=== PATIENT | female | born 1975 | race African-American/Black ===

== ENCOUNTER 2020-05-28 15:51 | Inpatient (IN) | payer OTHER, SELFPAY ==
[2020-05-28] VITALS (8 sets, daily range): BP systolic 111–135; BP diastolic 56–71; PULSE 90–100; RESP 13–30; TEMP 36.6–37.2; O2SAT 98–100; BMI 27.6
--- NOTE | ~2020-05-28 | MR_ITS ---
EXAMINATION: MR brain/brain stem wo con DATE: 05/30/2020 10:48 INDICATION: Intermittent confusion and unresponsiveness. TECHNIQUE: Magnetic resonance imaging (MRI) of the brain and brainstem was performed without intraven ous contrast. Sequences included sagittal and axial T1-weighted SE, axial diffusion-weighted FS SE, a xial T2*-weighted GRE, axial T2-weighted FLAIR, and axial T2-weighted FSE. Apparent diffusion coeffic ient (ADC) maps were created. COMPARISON: Brain CT angiogram dated 05/29/2020 FINDINGS: There are no areas of restricted diffusion to suggest acute infarction. No intracranial hemorrhage or abnormal intracranial mass lesion. Single small focus of subtly increased white matter T2 hyperinten sity in the left frontal lobe centrum semiovale which is within normal limits for age. There are no i ntraparenchymal signal abnormalities seen on the other pulse sequences. The ventricles are symmetric and normal in size. There are no abnormal extra-axial fluid collections. Flow voids are seen in the c erebral arteries on the T2-weighted sequences consistent with their expected patency. Mucous retentio n cyst in the right maxillary sinus Visualized orbits and soft tissues are unremarkable. There are no areas of abnormal enhancement on the post contrast images. IMPRESSION: 1. Normal brain. No acute intracranial process. Reviewed, dictated and finalized at location A.
--- NOTE | ~2020-05-28 | NM_ITS ---
EXAMINATION: NM hepatobiliary w pharm DATE: 05/31/2020 10:55 INDICATION: Generalized abdominal pain. COMPARISON: CT abdomen and pelvis 05/28/2020 TECHNIQUE: 4.9 mCi Tc-99m mebrofenin (Choletec) was administered intravenously. Scintigraphic images of the abdomen were obtained for one hour. Then, 1.4 mcg sincalide (Kinevac) IV was administered, an d imaging was continued for 30 minutes. FINDINGS: There is normal clearance of radiotracer from the blood pool. There is homogeneous tracer u ptake by the liver. Activity progresses to the bowel and gallbladder. Gallbladder ejection fraction (GBEF) was 43%. Note that most patients with gallbladder dysfunction have GBEF < 35%, which overlaps with the broad normal range of 10-90%. IMPRESSION: 1. Normal hepatobiliary scintigraphy. Reviewed, dictated and finalized at location B.
--- NOTE | ~2020-05-28 | CT_ITS ---
EXAMINATION: CTA BRAIN/CAROTID DATE: 05/29/2020 11:43 INDICATION: Syncope TECHNIQUE: Computed tomographic angiography (CTA) of the head and neck was performed with 100 mL Omni paque-350 intravenous contrast. Multiplanar reconstructions and maximum intensity projection 3D-recon structions of the carotid arteries and of the intracranial arteries were created by the technologist on a separate workstation. Precontrast CT of the head was also obtained. Automated exposure control and iterative reconstruction technique were employed.The dose-length product was 1699.28 mGy-cm. COMPARISON: None. FINDINGS: Carotid arteries: There is 0% stenosis of the left and right carotid bulbs relative to normal distal artery lumen diame ter (NASCET criteria). The visualized upper lungs are clear. Cervical soft tissues and superior media stinum are unremarkable. Likely positional straightening of the normal cervical lordosis. Mild upper thoracic spondylosis. Head: No acute intracranial hemorrhage, acute infarction or abnormal extra axial fluid collection. Ventricl es are normal and symmetric. No mass/mass effect. No abnormally enhancing brain lesions. The orbits, paranasal sinuses and mastoid air cells are normal. Intracranial arteries There is no hemodynamically significant stenosis in the vertebral, basilar and internal carotid arter ies. Vertebral arteries are codominant. There are no aneurysms identified. Both A1 and P1 segments a re patent. Cerebral arterial arborization appears symmetric. IMPRESSION: 1. 0% stenosis of the left and right carotid bulbs relative to normal distal artery lumen diameter (N ASCET criteria). 2. Normal cerebral angiogram. 3. Mild brain. No acute intracranial process or abnormally enhancing brain lesions. Reviewed, dictated and finalized at location A. IMPRESSION: 1. 0% stenosis of the left and right carotid bulbs relative to normal distal ar david lumen diameter (NASCET criteria). 2. Normal cerebral angiogram. 3. Mild brain. No acute intracranial process or abnormally enhancing brain lesi ons.
--- NOTE | ~2020-05-28 | CT_ITS ---
EXAMINATION: CTA chest PE abdomen pel DATE: 05/28/2020 17:42 INDICATION: Unresponsiveness. Abdominal pain. TECHNIQUE: Computed tomography (CT) pulmonary angiogram of the chest was performed with 100 mL Omnipa que-350 intravenous contrast. Additional 3D reconstructions utilizing coronal maximum intensity proje ction (MIP) were performed. CT of the abdomen and pelvis was performed with intravenous contrast util izing the same contrast bolus following a short delay. Automated exposure control and iterative recon struction technique were employed. The dose-length product was 587.25 mGy-cm. COMPARISON: None FINDINGS: Chest: Good contrast opacification of the pulmonary arteries. There is mild streak artifact from dense contr ast in the superior vena cava and right atrium. Minimal scattered respiratory motion artifact which d oes not significantly limit evaluation. No pulmonary embolism. No pneumonia, pulmonary edema, pleural effusion or pneumothorax. Heart size is normal. Coronary artery disease with likely stenting along t he left anterior descending coronary artery. No pericardial effusion. Thoracic aorta is normal in natalie iber with no dissection. No pathologically enlarged thoracic lymphadenopathy. Bones are unremarkable. Abdomen/pelvis: Couple small hepatic calcifications consistent with old granulomatous disease. Gallbladder, spleen, p ancreas, bilateral adrenal glands and kidneys are normal. Moderate amount of stool scattered througho ut the colon. No abnormal bowel wall thickening or obstruction. Appendix is normal. Fibroid uterus wi th fibroids measuring up to 5 cm which distorts the endometrial canal. Multiple phleboliths in the pe lvis. Bladder and bilateral adnexa are normal. No free intraperitoneal gas or fluid. No pathologicall y enlarged abdominal or pelvic lymphadenopathy. Bones are unremarkable. IMPRESSION: 1. No pulmonary embolism or other acute cardiopulmonary disease. 2. Fibroid uterus. Reviewed, dictated and finalized at location A.
[2020-05-28 16:01] LABS: Glucose Point of Care 109 (65-105)
--- NOTE | 2020-05-28 16:19 | ED.GENADULT ---
HPI - General Adult General Chief complaint: Altered Mental Status Stated complaint: unresponsive Time Seen by Provider: 05/28/20 16:05 Source: family Limitations: clinical condition History of Present Illness HPI narrative: Patient is 45 years old -[place] female brought to the emergency room by her son unresponsive. He is telling me that his mom was sitting talking to him and suddenly fainted and became unresponsive. Narcan was given immediately without any response, patient was responding to painful stimulation, within 8 minutes patient was able to open up her eyes and answering questions. Patient is awake, alert and oriented to her name, age and the year, does not know the president. She reports a lot of abdominal and chest pain in the last 3 days, cramps, nausea, intermittent vomiting. And a lot of stress lately. Patient denies any fever, chills, headache, coughing, shortness of breath. Patient also denies exposure to anybody with known COVID-19. Patient lives alone, denies smoking, drinking or using drugs. Related Data Home Medications Medication Instructions Recorded Confirmed albuterol sulfate INHALATION 05/28/20 aspirin 05/28/20 atenolol-chlorthalidone tablet 05/28/20 budesonide-formoterol [Symbicort] INHALATION 05/28/20 clopidogrel 05/28/20 digoxin 05/28/20 ferrous sulfate 05/28/20 lisinopril 05/28/20 metoprolol tartrate 05/28/20 montelukast mg 05/28/20 omeprazole 05/28/20 rosuvastatin mg 05/28/20 Allergies Allergy/AdvReac Type Severity Reaction Status Date / Time No Known Allergies Allergy Verified 05/28/20 16:08 Review of Systems Review of Systems: Narrative: CONSTITUTIONAL: Denies fever, chills, or sweats. EYES: Denies visual changes, redness, or discharge. ENT: Denies rhinorrhea, congestion, sore throat, or otalgia. CARDIOVASCULAR: Denies chest pain, palpitations, or edema. RESPIRATORY: Denies cough or dyspnea. GASTROINTESTINAL: Denies abdominal pain, nausea, vomiting, or diarrhea. GENITOURINARY: Denies dysuria or hematuria. SKIN: Denies rash or itching. MUSCULOSKELETAL: Denies back pain, joint pain, or myalgia. NEUROLOGIC: Denies headache, numbness, or weakness. PSYCHIATRIC: Anxiety and depression PMFSH Past Medical History Medical History (Updated 05/28/20 @ 19:18 by Polly Mcgowan MD) Coronary artery disease Hyperlipidemia Hypertension Surgical History Surgical History (Updated 05/28/20 @ 16:24 by Polly Mcgowan MD) Stented coronary artery Social History Social History (Updated 05/28/20 @ 16:25 by Polly Mcgowan MD) Smoking status: Unknown if ever smoked Alcohol intake: unknown Substance use: unknown Gender identity (if verbalized by the patient): Female Exam Narrative: Exam Narrative: General appearance: Well-developed, well-nourished, unresponsive, responsive to painful stimulation, lasted for 8 minutes and then became awake alert and oriented x3. Skin: Normal color Head: Normocephalic, nontraumatic Eyes: Clear conjunctiva ENT: Oropharynx normal, ears normal, nose normal Neck: Supple, nontender Chest and respiratory: Airway patent, no respiratory distress, no accessory muscle use Heart: Regular rate/rhythm Abdomen: Soft, diffuse tenderness mainly right lower quadrant, no organomegaly, quiet bowel sounds Vascular: Normal peripheral pulses, normal capillary refill. Musculoskeletal: Normal range of motion, nontender back Neurologic: Alert and oriented ?3, FACILITY DESIGNER is normal as tested, no gross motor deficit Course Course Emergency Course: Improving Vital Signs Vital signs: Vital Signs Temperature 36.7 C 05/28/20 16:00 Pulse Rate 99 05/28/20 16:00 Respira
--- NOTE | 2020-05-28 16:27 | ECG_ITS ---
Measurements Intervals [place] Rate: 101 P: 35 [place]: 179 QRS: 45 QRSD: 80 T: 40 QT: 337 QTc: 438 Interpretive Statements SINUS TACHYCARDIA BASELINE WANDER- I, II, AVR, AVL, AVF, V3 BORDERLINE ECG Electronically Signed On 05-28-2020 19:34:02 CDT by Dawit Toscano D.O.
[2020-05-28 16:35] LABS: Alveolar/Arterial O2 Gradient 16.7 mmHg; Base Excess ABG 1.8 mEq/l (+/-2.0); Fractional Inspired Oxygen 21 %; Oxygen Content ABG 11.9 %vol (16.0-22.0); Oxygen Saturation ABG 97.7 % (95.0-100.0); Oxyhemoglobin 96.3 % THb (90.0-100.0); PCO2 ABG 33.7 mmHg (35.0-45.0); PO2 ABG 92.7 mmHg (80.0-100.0); PO2 FiO2 Ratio Arterial Blood 4.41 %; Total Hemoglobin 8.7 g/dL (12.0-18.0); pH ABG 7.489 (7.350-7.450)
[2020-05-28 16:36] LABS: Device ROOM AIR; Site Drawn LEFT BRACHIAL
[2020-05-28 16:38] LABS: Basophils Absolute Auto 0.1 K/mm3 (0.0-0.1); Basophils Percent Auto 0.5 % (0.2-1.2); Hematocrit 28.5 % (37.0-47.0); Hemoglobin 8.2 g/dL (12.0-15.0); Immature Granulocyte Absolute 0.06 K/mm3 (0.00-0.031); Immature Granulocyte Percent A 0.5 % (0-0.5); Lymphocytes Absolute Auto 2.62 K/mm3 (0.9-3.2); Lymphocytes Percent Auto 19.9 % (18.3-44.2); Mean Corpuscular HGB Conc 28.8 g/dl (32-36); Mean Corpuscular Hemoglobin 19.2 pg (26-34); Mean Corpuscular Volume 66.9 fl (80-100); Mean Platelet Volume 10.7 fl (7.4-10.4); Monocytes Absolute Auto 1.4 K/mm3 (0.1-0.6); Monocytes Percent Auto 10.7 % (2.6-8.5); Neutrophils Percent Auto 68.4 % (45.5-73.1); Platelet Count Result 655 k/mm3 (150-375); Red Blood Count 4.26 M/mm3 (4.2-5.4); Red Cell Distribution Width 20.7 % (11.5-14.5); White Blood Count 13.2 K/mm3 (4.5-10.0)
[2020-05-28] MEDS: ONDANSETRON INJ 4 MG/2 ML VIAL IV PUSH ×2 (16:42→22:18)
[2020-05-28 16:50] LABS: Add Urine Microscopic? YES; Appearance Urine Cloudy (Clear); Bacteria Urine Trace /hpf; Bilirubin Urine 1+ (Negative); Color Urine Amber (Yellow); Glucose Urine UA Negative (Negative); Hyaline Casts Urine 20-29 /lpf; Ketones Urine Negative (Negative); Leukocyte Esterase Ur Negative LEU/UL (Negative); Mucus Urine Heavy /lpf; Nitrate Urine Negative (Negative); Protein Urine 3+ mg/dL (Negative); Specific Grav Ur 1.027 (1.001-1.035); Squamous Epithelial Cell Urine Rare /hpf (Few); WBC Urine 21-30 /hpf
[2020-05-28 16:54] LABS: Alanine Aminotransferase 18 U/L (4-35); Albumin Level 4.8 g/dL (3.5-5.1); Alkaline Phosphatase 146 U/L (38-126); Anion Gap 16 mmol/L (8-16); Aspartate Amino Transferase 28 U/L (14-36); Bilirubin,Total 0.5 mg/dL (0.2-1.3); Blood Urea Nitrogen 19 mg/dL (7-17); Calcium 9.2 mg/dL (8.4-10.2); Carbon Dioxide 25 mmol/L (22-30); Chloride 93 mmol/L (98-107); Estimated Glomerular Filt Rate 39; Glucose 111 mg/dL (65-105); Lipase 58 U/L (23-300); Magnesium 2.2 mg/dL (1.6-2.3); Potassium 3.6 mmol/L (3.4-5.0); Sodium 134 mmol/L (137-145)
[2020-05-28 16:55] LABS: Blood Urine Negative (Negative)
[2020-05-28 16:56] LABS: Ethanol < 10 mg/dL (<10)
[2020-05-28 16:57] LABS: Amphetamine Screen Urine Negative (Negative); Barbiturate Screen Urine Negative (Negative); Benzodiazepines Screen Urine Negative (Negative); Cannabinoid Screen Urine Negative (Negative); Cocaine Screen Urine Negative (Negative); Methadone Screen Urine Negative (Negative); Opiate Screen Urine Negative (Negative); Phencyclidine Screen Urine Negative (Negative)
--- NOTE | 2020-05-28 16:58 | PC.NURSE ---
Patient requesting pain medication. EDP aware, reports will need CT results. Patient informed.
[2020-05-28 17:07] LABS: Platelet Estimate Increased (Adequate)
[2020-05-28 17:08] LABS: Anisocytosis 3+ (NORMAL); Hypochromasia 1+ (NORMAL)
[2020-05-28] MEDS: MORPHINE SULFATE 4 MG/ML INJ IV PUSH (17:59)
--- NOTE | 2020-05-28 20:51 | PC.NURSE ---
Rica Bahena: [phone]
--- NOTE | 2020-05-28 21:30 | ADMGEN ---
This patient, Concepción Lozano, was admitted to [facility] Surg Room 314-01. Patient/family oriented to hospital policies and general routines including ID bracelet, bed and alarms, visiting hours, pain management, procedures, bathroom and other care routines, personal items, smoking policy, room service/diet, and visiting hours. Valuables list has been completed. Information on how to activate the Rapid Response Team has been discussed. Patient/Family are encouraged to report perceived risks to care and to ask questions if they do not understand what they are told or what they should do.
--- NOTE | 2020-05-28 21:30 | PM.IMHP ---
H&P: HPI History of Present Illness Date/Time: 05/28/20 21:30 Chief complaint: Syncope. Narrative: Concepción Lozano is a very pleasant 45-year-old female with coronary artery disease status post stent to the LAD in July 2019, hypertension, hyperlipidemia, and iron deficiency anemia who presented to the emergency department earlier today via private vehicle for evaluation after a syncopal episode. She was at a family function not long prior to arrival, when she developed sudden onset of diffuse abdominal cramping like I was delivering a baby which radiated somewhat into the chest. The pain was so severe that it seemed to take her breath, and she may have been breathing rapidly as shortly thereafter she developed lightheadedness and darkening of her vision with subsequent syncopal episode. Her son was standing next to her and was able to prevent her from falling. He placed her in the car and drove her to the emergency department, where she was still unresponsive on arrival. She was given Narcan without response but within about 5 minutes she came to and was able to provide more history. Over the last several days she has not been feeling well, with nausea and vomiting, with the inability to keep anything down longer than a couple of minutes. Additionally, she is on her menstrual cycle and with further questioning she has had heavy periods for quite some time, sometimes going through a half a box of pads in 1 day. She bleeds heavily between periods as well. She has been on iron for some time and reports that her stool is always dark, with a normal bowel movement yesterday. Omeprazole as listed on her medication list, and it sounds like she was prescribed this when she was started on aspirin and clopidogrel after her DC in 07/2019. She denies significant GERD symptoms but does report increasing stress recently. She does not consume significant quantities of caffeine and denies alcohol use. No hematemesis or hematochezia. No history of peptic ulcers, gallbladder disease, or pancreatitis. She has not had exertional chest pain or pleuritic pain. No cough or resting shortness of breath. No history of venous thromboembolism. There was no mention of seizure activity. She has no history of syncope. Of note, she has been monitoring her blood pressures at home and over the past 3 days or so they have been lower than usual, as low as the 90 systolic. Review of Systems Review of Systems: Narrative: Twelve systems were reviewed with pertinent positives and negatives as per HPI. No fever, chills, or sweats. No recent cold or flu symptoms. No exposure to those positive for COVID-19. She has lost 13 lb unintentionally maybe over the last 6 months. She has never had a colonoscopy or endoscopy. She does have COPD and was a heavy smoker prior to her DC, but states that is well controlled on her maintenance inhalers. No dysuria or hematuria. She has not noticed a significant change in urine output. Except as documented, all other systems were reviewed and are negative. [facility] Past Medical History Medical History (Updated 05/28/20 @ 22:44 by Stephanie Knox PA-C) Chronic obstructive pulmonary disease Coronary artery disease Status post stent to the LAD in July 2019, on dual anti-platelet therapy as of 05/28/2020. She is a patient of Dr. Jason Dunaway. Hyperlipidemia Hypertension Iron deficiency anemia Myocardial infarction (~07/2019) Surgical History Surgical History (Updated 05/28/20 @ 22:07 by Stephanie Knox PA-C) History of 3 sections Stented coronary artery (~07/2019) Drug-eluting stent to the LAD. Family History Family History (Updated 05/28/20 @ 22:08 by Stephanie Knox PA-C) Mother Congestive heart failure Liver cancer Sibling Congenital heart disease Social History Social History (Updated 05/28/20 @ 22:09 by Stephanie Knox PA-C) Social History: Surrogate decision maker: Yahaira Lozano, sister. Code
[2020-05-28] MEDS: PANTOPRAZOLE SODIUM IV 40 MG VIAL IV PUSH (22:15)
[2020-05-28] MEDS: SODIUM CHLORIDE 0.9% IV 1,000 ML 75 ML IV CONT (22:15)
[2020-05-28 22:28] LABS: Hematocrit 27.3 % (37.0-47.0); Hemoglobin 7.9 g/dL (12.0-15.0); Immature Reticulocyte Fraction 28.5 % (3.0-15.9); Reticulocyte Hemoglobin Conten 26.4 pg (28.2-35.7); Reticulocyte Percent 2.52 % (0.7-4.3)
[2020-05-28 22:47] LABS: Lactate Dehydrogenase 586 U/L (313-618)
[2020-05-28 22:49] LABS: Iron 26 ug/dL (37-170)
[2020-05-28 22:54] LABS: Transferrin 373 mg/dL (206-381)
[2020-05-28 22:58] LABS: Percent Iron Saturation 5 % (20-50)
[2020-05-28 23:02] LABS: Glucose Point of Care 110 (65-105)
[2020-05-28 23:05] LABS: Troponin I 0.043 ng/mL (0.000-0.034)
[2020-05-28 23:26] LABS: Ferritin 8.99 ng/mL (6.24-137)
[2020-05-28 23:33] LABS: Digoxin 1.7 ng/mL (0.8-2.0)
[2020-05-28 23:54] LABS: Folic Acid 9.6 ng/mL (2.76->20)
[2020-05-29] VITALS (21 sets, daily range): BP systolic 92–150; BP diastolic 53–89; PULSE 60–983; RESP 12–18; TEMP 36.1–36.8; O2SAT 95–100
--- NOTE | 2020-05-29 | ECHO_ITS ---
Patient Info Name: Concepción Lozano Age: 45 years : 1975 Gender: Female Ht: 62 in Wt: 151 lbs BSA: 1.75 m2 HR: 83 bpm BP: 122 / 65 mmHg Technical Quality: Good Exam Date: 05/29/2020 7:16 AM Exam Location: [facility] Patient Status: Inpatient Admit Date: 05/28/2020 Staff Ordering Physician: Stephanie Knox PA-C Bond Manager: Rica Neri RDCS Attending Provider: Sofia Dyer DO Referring Physician: Abilio REVELES; Exam Type: CA echo dop color flow w con Summary 1. Normal LV size and wall thickness, normal LV systolic and diastolic function, EF 60-65%. Normal mitral valve, no significant mitral regurgitation. Aortic valve appears sclerotic, all 3 leaflets are not well visualized; mild stenosis with valve area 2.3 cm2, trivial AI. Trace TR, unable to assess RVSP due to inadequate TR jet velocity. Left Ventricle Left ventricular chamber dimension is normal. Left ventricular systolic function is normal, estimated at 60-65%. There is mildly increased left ventricular wall thickness. Left ventricular septal wall motion is normal. The left ventricular diastolic function is normal. Right Ventricle Right ventricular chamber dimension is normal. Right ventricular systolic function is normal. Left Atria Left atrial chamber dimension is normal. Right Atria Right atrial chamber dimension is normal. Aortic Valve The aortic valve is trileaflet. There is moderate aortic valve sclerosis. There is mild aortic valve stenosis with a peak velocity of 170.79 cm/s, mean gradient of 3 mmHg, and aortic valve area of 2.05 cm2. There is trace aortic valve regurgitation. Pulmonic Valve The pulmonic valve is normal. There is trace pulmonic regurgitation. Mitral Valve The mitral valve has normal leaflets. There is no mitral valve stenosis. There is no mitral valve regurgitation. Tricuspid Valve The tricuspid valve leaflets are normal. There is trace tricuspid valve regurgitation. Pericardium/Pleural The pericardium appears epicardial fat pad. Aorta The aortic root size at the sinus of Valsalva is normal. The prox ascending aorta size is normal. Left Ventricular Outflow Tract Name Value Normal LVOT 2D LVOT Diameter 1.93 cm LVOT Doppler LVOT Peak Gradient 6 mmHg LVOT Mean Gradient 2 mmHg LVOT VTI 18.83 cm LVOT VTI/AV VTI Ratio 0.70 LVOT Stroke Volume 54.90 ml LVOT CO 3.63 l/min LVOT CI 2.07 L/min/m2 Pulmonic Valve Name Value Normal PV Doppler PV Peak Gradient 3 mmHg Aortic Valve Name Value Normal ---------
[2020-05-29 01:57] LABS: Troponin I 0.034 ng/mL (0.000-0.034)
[2020-05-29 06:30] LABS: Hematocrit 27.3 % (37.0-47.0); Hemoglobin 7.7 g/dL (12.0-15.0); Mean Corpuscular HGB Conc 28.2 g/dl (32-36); Mean Corpuscular Hemoglobin 19.1 pg (26-34); Mean Corpuscular Volume 67.7 fl (80-100); Mean Platelet Volume 10.3 fl (7.4-10.4); Platelet Count Result 559 k/mm3 (150-375); Red Blood Count 4.03 M/mm3 (4.2-5.4); Red Cell Distribution Width 20.5 % (11.5-14.5); White Blood Count 9.9 K/mm3 (4.5-10.0)
[2020-05-29 06:53] LABS: Anion Gap 11 mmol/L (8-16); Blood Urea Nitrogen 16 mg/dL (7-17); Calcium 9.1 mg/dL (8.4-10.2); Carbon Dioxide 27 mmol/L (22-30); Chloride 96 mmol/L (98-107); Estimated CRCL calculation 36 ml/min; Estimated Glomerular Filt Rate 42; Glucose 102 mg/dL (65-105); Magnesium 2.5 mg/dL (1.6-2.3); Potassium 3.4 mmol/L (3.4-5.0); Sodium 134 mmol/L (137-145)
--- NOTE | 2020-05-29 07:53 | PCRCNOTE ---
med in mar is messed up pt given 2 puffs not 160 puffs of budesonide/form 160-4.5 MCG
[2020-05-29 10:36] LABS: Hematocrit 25.4 % (37.0-47.0); Hemoglobin 7.3 g/dL (12.0-15.0)
[2020-05-29] MEDS: ONDANSETRON INJ 4 MG/2 ML VIAL IV PUSH ×3 (12:09→21:16)
[2020-05-29] MEDS: PANTOPRAZOLE SODIUM IV 40 MG VIAL IV PUSH ×2 (12:11→20:57)
[2020-05-29] MEDS: IRON SUCROSE COMPLEX 100 MG in SODIUM CHLORIDE 0.9% IV 50 ML 220 MG IVPB (12:45)
[2020-05-29] MEDS: DIGOXIN 250 MCG TABLET PO (13:35)
[2020-05-29] MEDS: POTASSIUM CHLORIDE 20 MEQ TABLET PO (13:36)
[2020-05-29] MEDS: ROSUVASTATIN 10 MG TABLET 40 MG PO (13:36)
[2020-05-29] MEDS: MONTELUKAST SODIUM 10 MG TABLET PO (13:36)
[2020-05-29] MEDS: ASPIRIN 81 MG CHEWABLE TABLET PO (13:37)
[2020-05-29] MEDS: FERROUS SULFATE 324 MG TABLET PO (13:37)
[2020-05-29] MEDS: CYANOCOBALAMIN 1,000 MCG TABLET 1000 MCG PO (13:37)
--- NOTE | 2020-05-29 14:31 | ECG_ITS ---
Measurements Intervals [facility] [place] Rate: 91 P: 9 [place]: 309 QRS: 40 QRSD: 81 T: 3 QT: 331 QTc: 409 Interpretive Statements SINUS RHYTHM WITH MARKED FIRST DEGREE AV BLOCK BORDERLINE ST-T WAVE ABNORMALITY- ANT/INF LEADS BASELINE ARTIFACT- I, III, AVR, AVL, AVF, V5-V6 ABNORMAL ECG Electronically Signed On 05-29-2020 16:58:28 CDT by Dawit Toscano D.O.
[2020-05-29] MEDS: SODIUM CHLORIDE 0.9% IV 1,000 ML 75 ML IV CONT (15:20)
--- NOTE | 2020-05-29 15:58 | PC.NURSE ---
This patient, Concepción Lozano, was transferred to [[facility] ] on 05/29/20 at 1550. Personal belongings sent with patient. Belongings list checked. Report given to [Ondina ]. Appropriate documentation sent with patient.
--- NOTE | 2020-05-29 16:11 | PM.IMPN ---
Progress Note: A&P Assessment and Plan (1) Mobitz type 2 second degree heart block: Code(s): I44.1 - Atrioventricular block, second degree Status: Acute Assessment and Plan: -----concerning telemetry strips show evidence of possible 2nd degree type 2 heart block. This did not happen when she was symptomatic today but happened at 5:00 a.m.. I had a repeat EKG which does not show this. I have discussed this with the project safety manager and he is going to see her tomorrow. Recommends holding beta-cindy therapy as well as digoxin. I am unsure of this is causing her syncope as I believe it is multi factorial. See below (2) Syncope: Code(s): R55 - Syncope and collapse Status: Acute Assessment and Plan: -----unclear etiology at this time but I suspect she had a vasovagal event from her abdominal pain. This is complicated with her worsening anemia due to menorrhalgia and now possibly a heart block. CT of the abdomen pelvis did not show any etiology for the abdominal pain and the patient states it is getting better but still there. She has not had any bowel movements. I held her beta-cindy and digoxin and repeat an EKG which shows first-degree heart block at this time. I have contacted Dr. Dunaway who recommends another troponin and moving her to the IMU. CTA of the brain normal. Await echo (3) Kidney failure: Qualifiers: Renal failure chronicity: unspecified chronicity Qualified Code(s): N19 - Unspecified kidney failure Code(s): N19 - Unspecified kidney failure Status: Acute Assessment and Plan: -----patient does not know of any history of kidney disease but her creatinine has been elevated. She received contrast yesterday and today so we will continue with the IV fluids. We have requested records from her PCP (4) Dehydration: Code(s): E86.0 - Dehydration Status: Acute Assessment and Plan: -----Due to poor oral intake from nausea in addition to vomiting last couple of days. Continue IV fluids (5) Iron deficiency anemia: Code(s): D50.9 - Iron deficiency anemia, unspecified Status: Acute Assessment and Plan: -----Most likely due to menometrorrhagia however given GI symptoms will wait for Ifob. She was given 1 dose of IV iron today and her hemoglobin decreased with additional dizziness so she was given 1 unit of blood. (6) Coronary artery disease: Code(s): I25.10 - Atherosclerotic heart disease of [place] coronary artery without angina pectoris Status: Acute Assessment and Plan: -----Status post drug-eluting stent to the LAD in July 2019. Plavix is being held and previous provider discussed this with Dr. Dunaway. Beta-cindy and digoxin has been held (7) Hypertension: Code(s): I10 - Essential (primary) hypertension Status: Acute Assessment and Plan: -----last blood pressure 110/60. Monitor (8) Menometrorrhagia: Code(s): N92.1 - Excessive and frequent menstruation with irregular cycle Status: Acute Assessment and Plan: -----this is been going on for about 6 months to a year and she is noted to have fibroids on CT. I discussed the findings with her and she is going to follow-up with her OBGYN Dr. Marques who is in the [place] (9) Chronic obstructive pulmonary disease: Code(s): J44.9 - Chronic obstructive pulmonary disease, unspecified Status: Acute Assessment and Plan: -----No acute issues; continue maintenance inhalers. Time Spent With Patient Time with patient: 25 - 35 minutes Subjective Date/time seen: 05/29/20 16:11 Interval history: Pt is a 45-year-old female here for abdominal pain and syncope. Patient was seen today and states that she is still feeling nauseated and having abdominal pain. When she went to go to the CT scan she felt herself get dizzy again and the public works technician said t
[2020-05-29 16:23] LABS: Hemoglobin 8.7 g/dL (12.0-15.0)
[2020-05-29 16:48] LABS: Troponin I 0.013 ng/mL (0.000-0.034)
--- NOTE | 2020-05-29 18:14 | PC.NURSE ---
This patient, Concepción Lozano, was received from [[id number] ] on 05/29/20 at 1545. Personal belongings list checked and signed. Patient/family oriented to unit policies and routines
[2020-05-29] MEDS: ACETAMINOPHEN 325 MG TABLET 650 MG PO (21:58)
[2020-05-29 22:14] LABS: Hemoglobin 8.9 g/dL (12.0-15.0)
[2020-05-30] VITALS (20 sets, daily range): BP systolic 101–122; BP diastolic 57–89; PULSE 46–100; RESP 16–20; TEMP 36–36.8; O2SAT 98–100
[2020-05-30] MEDS: SODIUM CHLORIDE 0.9% IV 1,000 ML 75 ML IV CONT ×2 (04:41→20:09)
[2020-05-30 04:48] LABS: Hematocrit 30.6 % (37.0-47.0); Mean Corpuscular HGB Conc 29.4 g/dl (32-36); Mean Corpuscular Volume 71.3 fl (80-100); Mean Platelet Volume 10.2 fl (7.4-10.4); Platelet Count Result 529 k/mm3 (150-375); Red Blood Count 4.29 M/mm3 (4.2-5.4); Red Cell Distribution Width 22.3 % (11.5-14.5); White Blood Count 8.4 K/mm3 (4.5-10.0)
[2020-05-30 05:00] LABS: Alanine Aminotransferase 14 U/L (4-35); Albumin Level 4.1 g/dL (3.5-5.1); Alkaline Phosphatase 125 U/L (38-126); Anion Gap 9 mmol/L (8-16); Aspartate Amino Transferase 22 U/L (14-36); Bilirubin,Total 0.5 mg/dL (0.2-1.3); Blood Urea Nitrogen 14 mg/dL (7-17); Calcium 9.1 mg/dL (8.4-10.2); Carbon Dioxide 25 mmol/L (22-30); Chloride 100 mmol/L (98-107); Estimated CRCL calculation 34 ml/min; Estimated Glomerular Filt Rate 39; Glucose 101 mg/dL (65-105); Potassium 3.4 mmol/L (3.4-5.0); Sodium 134 mmol/L (137-145)
[2020-05-30] MEDS: ROSUVASTATIN 10 MG TABLET 40 MG PO (08:43)
[2020-05-30] MEDS: ASPIRIN 81 MG CHEWABLE TABLET PO (08:43)
[2020-05-30] MEDS: FERROUS SULFATE 324 MG TABLET PO (08:43)
[2020-05-30] MEDS: CYANOCOBALAMIN 1,000 MCG TABLET 1000 MCG PO (08:43)
[2020-05-30] MEDS: PANTOPRAZOLE SODIUM IV 40 MG VIAL IV PUSH ×2 (08:44→21:17)
[2020-05-30] MEDS: MONTELUKAST SODIUM 10 MG TABLET PO (08:44)
[2020-05-30] MEDS: ONDANSETRON INJ 4 MG/2 ML VIAL IV PUSH ×3 (08:46→17:23)
--- NOTE | 2020-05-30 10:32 | PM.IMPN ---
Progress Note: A&P Assessment and Plan (1) [place] type 2 second degree heart block: Code(s): I44.1 - Atrioventricular block, second degree Status: Acute Assessment and Plan: -----concerning telemetry strips show evidence of 2nd degree type 2 heart block. This did not happen when she was symptomatic earlier today but but has been persistent at times. I have asked the nurse to try an order an EKG if she goes into this block again. I spoke with Cardiology who recommends holding beta-cindy therapy as well as digoxin. I am unsure of this is causing her syncope as I believe it is multi factorial. See below (2) Syncope: Code(s): R55 - Syncope and collapse Status: Acute Assessment and Plan: -----unclear etiology at this time but I suspect she had a vasovagal event from her abdominal pain. This is complicated with her worsening anemia due to menorrhalgia and now possibly a heart block. CT of the abdomen pelvis did not show any etiology for the abdominal pain and the patient states it is getting better but still there and is 8/10. For this reason, I am going to order a HIDA scan tomorrow as she possibly may have a hypoactive gallbladder. She has been on Protonix which to has not seemed to help. I will order a GI cocktail. She has not had any bowel movements. Because of the persistent pain, I am going to ask GI to see her in consult. (3) Kidney failure: Qualifiers: Renal failure chronicity: unspecified chronicity Qualified Code(s): N19 - Unspecified kidney failure Code(s): N19 - Unspecified kidney failure Status: Acute Assessment and Plan: -----patient does not know of any history of kidney disease but her creatinine has been elevated. She received contrast on admission so we will continue with the IV fluids. We have requested records from her PCP (4) Dehydration: Code(s): E86.0 - Dehydration Status: Acute Assessment and Plan: -----Due to poor oral intake from nausea in addition to vomiting last couple of days. Continue IV fluids (5) Iron deficiency anemia: Code(s): D50.9 - Iron deficiency anemia, unspecified Status: Acute Assessment and Plan: -----Most likely due to menometrorrhagia however given GI symptoms will wait for Ifob. She was given 1 dose of IV iron on admission and her hemoglobin decreased with additional dizziness so she was given 1 unit of blood. Hemoglobin stable today (6) Coronary artery disease: Code(s): I25.10 - Atherosclerotic heart disease of [place] coronary artery without angina pectoris Status: Acute Assessment and Plan: -----Status post drug-eluting stent to the LAD in July 2019. Plavix is being held and previous provider discussed this with Dr. Dunaway. Beta-cindy and digoxin has been held (7) Hypertension: Code(s): I10 - Essential (primary) hypertension Status: Acute Assessment and Plan: -----last blood pressure 116/62. Monitor (8) Menometrorrhagia: Code(s): N92.1 - Excessive and frequent menstruation with irregular cycle Status: Acute Assessment and Plan: -----this is been going on for about 6 months to a year and she is noted to have fibroids on CT. I discussed the findings with her and she is going to follow-up with her OBGYN Dr. Marques who is in the [place] (9) Chronic obstructive pulmonary disease: Code(s): J44.9 - Chronic obstructive pulmonary disease, unspecified Status: Acute Assessment and Plan: -----No acute issues; continue maintenance inhalers. Subjective Date/time seen: 05/30/20 10:32 Interval history: Pt is a 45-year-old female here for abdominal pain and syncope. Patient was seen today and says her abdominal pain is a little better but still an 8/10. She was able to eat today and she is still nauseous and throwing up a bit. She states this pain
--- NOTE | 2020-05-30 10:37 | ECG_ITS ---
Measurements Intervals [place] Rate: 71 P: MD: 0 QRS: 33 QRSD: 87 T: 27 QT: 367 QTc: 401 Interpretive Statements SINUS RHYTHM WITH MARKED FIRST DEGREE AV BLOCK BORDERLINE ST-T WAVE ABNORMALITY- ANTERIOR LEADS ABNORMAL ECG Electronically Signed On 05-30-2020 13:40:41 CDT by Dawit Toscano D.O.
--- NOTE | 2020-05-30 11:49 | PM.CNCAR ---
Assessment and Plan Assessment and plan (1) Syncope: Code(s): R55 - Syncope and collapse Status: Acute Assessment and Plan: She has first degree AV block with intermittent wenckebach heart block. Longest pause of 3.5 seconds Her low degree block is likely provoked by vasovagal reaction due to her abdominal pain however she likely has sick conduction system (likely due to prior STMI last year) suggested by prior holter monitor findings in February with HR 37. She was scheduled for 1 week event monitor next month during her last visit to the office For now she has no acute indication for pacemaker but will continue to monitor her on tele to see if she has any higher degree AV block Hold Metoprolol and Digoxin Check 2D echocardiogram (2) Coronary artery disease: Code(s): I25.10 - Atherosclerotic heart disease of [place] coronary artery without angina pectoris Status: Acute Assessment and Plan: s/p LAD stent. Continue ASA and Plavix. Continue Statin (3) Cardiomyopathy: Code(s): I42.9 - Cardiomyopathy, unspecified Status: Acute Assessment and Plan: With EF 25% folowing her STMI however EF recovered on echo in January. Will repeat limited 2D echo now for work up of syncope and to reassess LV function History of Present Illness History of Present Illness Consult date/time: 05/30/20 11:49 45 years-old Female with h/o , STEMI s/p PTCA to mid LAD (07/2019), ischemic cardiomyopathy with recovered EF, Hypertension and Asthma who presented with syncope She has been having nausea/vomiting with poor oral intake for few days and yesterday she developed severe cramping in her abdomen followed by dizziness and complete loose of consciousness. She was brought by family to ER and did not wake up till after she got to the hospital HER EKG shows sinus rhythm with marked first degree AV block. She has also been intermittently having wenckebach heart block as well as 2:1 block. Longest pause of 3.5 seconds. She feels better now but occasionally dizzy still. Had echo with EF 20-25% in Jul 2019 but most recent echo in January 2020 showed recovered EF 50-55% She had holter in February that showed sinus rhythm but she had junctional escape episode while asleep with HR 37. She was scheduled for 1 week event monitor next month to assess for pauses and also for palpitations that she has been intermittently feeling. She was on Metoprolol 25 BID Reason For Visit: Syncope. Review of Systems Review of Systems: All systems reviewed & are unremarkable except as noted in HPI and below Constitutional: Constitutional: Denies fatigue and Denies headache(s) Eyes: Eyes: Denies blurry vision ENT: Reports Normal hearing present and Denies headache(s) Cardiovascular: Cardiovascular: Denies chest pain, Denies diaphoresis, Denies pedal edema, Denies leg edema, Denies lightheadedness, Denies palpitations and Denies dyspnea Respiratory: Respiratory: Denies cough and Denies dyspnea Gastrointestinal: Gastrointestinal: Denies abdominal pain Musculoskeletal: Musculoskeletal: Denies back pain Neurologic: Reports Normal hearing present and Denies headache(s) Psychiatric: Psychiatric: Denies anxiety Endocrine: Endocrine: Denies fatigue and Denies palpitations [facility] Past Medical History Medical History (Updated 05/30/20 @ 13:23 by Yoly Kc MD) Abdominal pain Chronic obstructive pulmonary disease Coronary artery disease Status post stent to the LAD in July 2019, on dual anti-platelet therapy as of 05/28/2020. She is a patient of Dr. Jason Dunaway. Hyperlipidemia Hypertension Iron deficiency anemia Myocardial infarction (~07/2019) Nausea and vomiting in adult Surgical History Surgical History (Updated 05/28/20 @ 22:07 by Stephanie Knox PA-C) History of 3 sections Stented coronary artery (~07/2019) Drug-eluting stent to the LAD. Family History Fami
--- NOTE | 2020-05-30 12:15 | WPDGICN ---
Assessment and Plan Assessment and plan (1) Nausea and vomiting in adult: Code(s): R11.2 - Nausea with vomiting, unspecified Status: Acute Assessment and Plan: overall better with no vomiting but still nauseous, also abdominal discomfort. Will proceed with egd (assess if ulcers, h pylori, etc) and colonoscopy (lower abdominal pain, also h/o JOEY but most likely related to [facility] cause) but still need to assess (2) Abdominal pain: Code(s): R10.9 - Unspecified abdominal pain Status: Acute Assessment and Plan: better with medical management, CT scan reviewed (3) Iron deficiency anemia: Code(s): D50.9 - Iron deficiency anemia, unspecified Status: Acute Assessment and Plan: she has fibroids and heavy periods, received blood transfusion will need follow up with [facility] (4) Syncope: Code(s): R55 - Syncope and collapse Status: Acute Assessment and Plan: ? vasovagal but she also has cardiac history, cardiology is evaluating. (5) Coronary artery disease: Code(s): I25.10 - Atherosclerotic heart disease of [place] coronary artery without angina pectoris Status: Acute GI Consult Note Consult date/time: 05/30/20 12:15 Reason for consult: n/v, abdominal pain, syncope HPI: Concepción Lozano is a 45 year old female wiht history of coronary artery disease status post stent to the LAD in July 2019, hypertension, hyperlipidemia, and iron deficiency anemia probably from menometrorrhagia (she has heavy periods up to 2 weeks, several times a day with clots). She was brought here with 3-4 days of diffuse abdominal pain in lower area that will radiate up to epigastrium/chest along with nausea and vomiting. Day of admission she had severe pain like I was delivering a baby , pain seemed to take her breath, then became lightheadedness and darkening of her vision with subsequent syncopal episode. Her son was standing next to her and was able to prevent her from falling. She was even given narcan without response but within about 5 minutes she woke up. Work up included CTA, no PE, only fibroids (she completed her cycle yesterday), also had JOEY with hb 7 (received one unit of prbc) and up to 9. Liver enzymes, lipase normal, also digoxin level wnl. She is evaluated by cardiology (had AVB), most recent ECHO EF 50-55%, last year was 20-25%. Pain is better now, still nauseous. Never had scopes. Denies blood in stools or change in bowel habits. Started on ppi. Review of Systems Constitutional: Constitutional: Denies headache(s) and Denies weakness Eyes: Eyes: Reports blurry vision ENT: Reports Normal hearing present, Denies headache(s) and Denies neck pain Cardiovascular: Cardiovascular: Reports lightheadedness and Denies dyspnea Respiratory: Respiratory: Denies dyspnea Gastrointestinal: Gastrointestinal: Reports abdominal pain, Reports nausea and Reports vomiting Genitourinary: Genitourinary: Reports dysmenorrhea Musculoskeletal: Musculoskeletal: Denies neck pain Integumentary/Breasts: Skin/Breast: Denies dry skin Neurologic: Reports Normal hearing present and Reports syncope Psychiatric: Psychiatric: Denies anxiety Endocrine: Endocrine: Denies change in body appearance Hematologic/Lymphatic: Hematologic/Lymphatic: Denies easy bleeding Allergic/Immunologic: Allergic/Immunologic: Denies urticaria PMFSH Past Medical History Medical History (Updated 05/30/20 @ 12:25 by Cuate Kaye MD) Abdominal pain Chronic obstructive pulmonary disease Coronary artery disease Status post stent to the LAD in July 2019, on dual anti-platelet therapy as of 05/28/2020. She is a patient of Dr. Jason Dunaway. Hyperlipidemia Hypertension Iron deficiency anemia Myocardial infarction (~07/2019) Nausea and vomiting in adult Surgical History Surgical History (Updated 05/28/20 @ 22:07 by Stephanie Knox PA-C) History of 3 sections Stented coronary artery (
[2020-05-30] MEDS: CLOPIDOGREL BISULFATE 75 MG TABLET PO (14:54)
[2020-05-30] MEDS: ACETAMINOPHEN 325 MG TABLET 650 MG PO (16:46)
[2020-05-30] MEDS: BISACODYL 5 MG TABLET EC 20 MG PO (17:24)
[2020-05-30] MEDS: PEG (High)/E-LYTE SOLN 4,000 ML BTL 4000 ML PO (17:26)
[2020-05-30] MEDS: BISACODYL 5 MG TABLET EC 10 MG PO (21:18)
[2020-05-30] MEDS: polyethylene glycoL 3350 238 GM BOTTLE PO (21:18)
[2020-05-30 21:53] LABS: Occult Blood Gastric Fluid Negative; pH Gastric Fluid 4 (1-8)
[2020-05-30 21:54] LABS: Gastric Negative Control Negative; Gastric Positive Control Positive
[2020-05-31] VITALS (23 sets, daily range): BP systolic 95–120; BP diastolic 45–63; PULSE 73–99; RESP 16–24; TEMP 36.4–36.7; O2SAT 95–100; BMI 28.6
[2020-05-31 04:58] LABS: Anion Gap 10 mmol/L (8-16); Blood Urea Nitrogen 10 mg/dL (7-17); Calcium 9.1 mg/dL (8.4-10.2); Carbon Dioxide 21 mmol/L (22-30); Chloride 104 mmol/L (98-107); Estimated CRCL calculation 42 ml/min; Estimated Glomerular Filt Rate 49; Glucose 92 mg/dL (65-105); Potassium 3.7 mmol/L (3.4-5.0); Sodium 135 mmol/L (137-145)
[2020-05-31 06:50] LABS: Hematocrit 30.6 % (37.0-47.0); Mean Corpuscular HGB Conc 29.4 g/dl (32-36); Mean Corpuscular Hemoglobin 20.8 pg (26-34); Mean Corpuscular Volume 70.7 fl (80-100); Mean Platelet Volume 9.7 fl (7.4-10.4); Platelet Count Result 546 k/mm3 (150-375); Red Blood Count 4.33 M/mm3 (4.2-5.4); Red Cell Distribution Width 22.4 % (11.5-14.5); White Blood Count 8.8 K/mm3 (4.5-10.0)
[2020-05-31] MEDS: SODIUM CHLORIDE 0.9% IV 1,000 ML 75 ML IV CONT ×2 (08:26→22:40)
[2020-05-31] MEDS: PANTOPRAZOLE SODIUM IV 40 MG VIAL IV PUSH (08:27)
[2020-05-31] MEDS: LACTATED RINGERS 1,000 ML 150 ML IV CONT (12:20)
--- NOTE | 2020-05-31 12:44 | WPDANESEPPF ---
Anes - Initial Pre Proc Eval Procedure: Operation Date: 05/31/20 12:30 Proposed Procedures p Esophagogastroduodenoscopy & Colonoscopy - Cuate Kaye MD Date/Time: 05/31/20 12:44 Surgeon: Sofia Dyer DO Pre Op Diagnosis: Syncope. Patient Data Age: 45 Gender: F Height: 5 ft 2 in Weight: 71 kg Last Vital Signs Temp 98.1 F 05/31/20 12:10 Pulse 81 05/31/20 12:10 Resp 18 05/31/20 12:10 BP 119/63 05/31/20 12:10 Pulse Ox 100 05/31/20 12:10 Allergies Allergy/AdvReac Type Severity Reaction Status Date / Time No Known Allergies Allergy Verified 05/31/20 12:08 Home Medications Medication Instructions Recorded Confirmed Type albuterol sulfate 2 puff INHALATION PRN 05/28/20 05/28/20 History aspirin 81 mg PO DAILY 05/28/20 05/28/20 History atenolol-chlorthalidone 50 tablet PO DAILY 05/28/20 05/28/20 History budesonide-formoterol [Symbicort] 160 puff INHALATION BID 05/28/20 05/28/20 History clopidogrel 75 mg PO DAILY 05/28/20 05/28/20 History digoxin 250 mcg PO DAILY 05/28/20 05/28/20 History ferrous sulfate 325 mg PO DAILY 05/28/20 05/28/20 History lisinopril 5 mg PO DAILY 05/28/20 05/28/20 History metoprolol tartrate 25 mg PO BID 05/28/20 05/28/20 History montelukast 10 mg PO DAILY 05/28/20 05/28/20 History omeprazole 20 mg PO DAILY 05/28/20 05/28/20 History rosuvastatin 40 mg PO DAILY 05/28/20 05/28/20 History Laboratory Tests 05/30/20 05/31/20 05/31/20 21:42 04:38 06:10 WBC 8.8 K/mm3 K/mm3 (4.5-10.0) RBC 4.33 M/mm3 M/mm3 (4.2-5.4) Hgb 9.0 g/dL L g/dL (12.0-15.0) Hct 30.6 % L % (37.0-47.0) MCV 70.7 fl L fl (80-100) MCH 20.8 pg L pg (26-34) MCHC 29.4 g/dl L g/dl (32-36) RDW 22.4 % H % (11.5-14.5) Plt Count 546 k/mm3 H k/mm3 (150-375) MPV 9.7 fl fl (7.4-10.4) Sodium 135 mmol/L L mmol/L (137-145) Potassium 3.7 mmol/L mmol/L (3.4-5.0) Chloride 104 mmol/L mmol/L (98-107) Carbon Dioxide 21 mmol/L L mmol/L (22-30) Anion Gap 10 mmol/L mmol/L (8-16) BUN 10 mg/dL mg/dL (7-17) Creatinine 1.40 mg/dL H mg/dL (0.7-1.0) Estim Creat Clear Calc 42 ml/min ml/min Estimated GFR 49 L (59 - ) Glucose 92 mg/dL mg/dL (65-105) Calcium 9.1 mg/dL mg/dL (8.4-10.2) Gastric Fluid pH 4 (1-8) Gastric Occult Blood Negative Patient hx anesthesia problems: none Family hx anesthesia problems: none PMFSH Past Medical History Medical History (Updated 05/30/20 @ 13:23 by Yoly Kc MD) Abdominal pain Chronic obstructive pulmonary disease Coronary artery disease Status post stent to the LAD in July 2019, on dual anti-platelet therapy as of 05/28/2020. She is a patient of Dr. Jason Dunaway. Hyperlipidemia Hypertension Iron deficiency anemia Myocardial infarction (~07/2019) Nausea and vomiting in adult Surgical History Surgical History (Updated 05/28/20 @ 22:07 by Stephanie Knox PA-C) History of 3 sections Stented coronary artery (~07/2019) Drug-eluting stent to the LAD. Family History Family History (Updated 05/28/20 @ 22:08 by Stephanie Knox PA-C) Mother Congestive heart failure Liver cancer Sibling Congenital heart disease Social History Social History (Updated 05/28/20 @ 22:09 by Stephanie Knox PA-C) Social History: Surrogate decision maker: Yahaira Lozano, sister. Code status: Full code. Smoking packs per day: 2 Smoking cigarettes per day: 40.0 Years smoked: 20 Smoking pack-years: 40.00 Alcohol intake: never Substance use: never Substance use type: does not use Additional living arrangements comments: Patient resides in [place] with her niece. Occupation/Education: unemployed Gender identity (if verbalized by the patient): Female
[2020-05-31] MEDS: ONDANSETRON INJ 4 MG/2 ML VIAL IV PUSH ×2 (14:32→21:03)
--- NOTE | 2020-05-31 14:48 | PM.IMPN ---
Progress Note: A&P Assessment and Plan (1) Second degree type I atrioventricular block: Code(s): I44.1 - Atrioventricular block, second degree Status: Acute Assessment and Plan: -----concerning telemetry strips show evidence of 2nd degree type 1 heart block. I spoke with Cardiology who recommends holding beta-cindy therapy as well as digoxin. I am unsure of this is causing her dizziness as I believe it is multi factorial. See below (2) Syncope: Code(s): R55 - Syncope and collapse Status: Acute Assessment and Plan: -----unclear etiology at this time but I suspect she had a vasovagal event from her abdominal pain. This is complicated with her worsening anemia due to menorrhalgia and now possibly a heart block. CT of the abdomen pelvis did not show any etiology for the abdominal pain and the patient states it is getting better but still there and is 8/10. HIDA normal. She has been on Protonix which to has not seemed to help. GI consulted. (3) Kidney failure: Qualifiers: Renal failure chronicity: unspecified chronicity Qualified Code(s): N19 - Unspecified kidney failure Code(s): N19 - Unspecified kidney failure Status: Acute Assessment and Plan: -----patient does not know of any history of kidney disease but her creatinine has been elevated. She received contrast on admission so we will continue with the IV fluids. We have requested records from her PCP (4) Dehydration: Code(s): E86.0 - Dehydration Status: Acute Assessment and Plan: -----Due to poor oral intake from nausea in addition to vomiting last couple of days. Continue IV fluids (5) Iron deficiency anemia: Code(s): D50.9 - Iron deficiency anemia, unspecified Status: Acute Assessment and Plan: -----Most likely due to menometrorrhagia however given GI symptoms will wait for Ifob. She was given 1 dose of IV iron on admission and her hemoglobin decreased with additional dizziness so she was given 1 unit of blood. Hemoglobin stable today (6) Coronary artery disease: Code(s): I25.10 - Atherosclerotic heart disease of [place] coronary artery without angina pectoris Status: Acute Assessment and Plan: -----Status post drug-eluting stent to the LAD in July 2019. Plavix is being held and previous provider discussed this with Dr. Dunaway. Beta-cindy and digoxin has been held. Consider restarting soon if pts menorrhalgia improves (7) Hypertension: Code(s): I10 - Essential (primary) hypertension Status: Acute Assessment and Plan: -----last blood pressure 108/51. Monitor (8) Menometrorrhagia: Code(s): N92.1 - Excessive and frequent menstruation with irregular cycle Status: Acute Assessment and Plan: -----this is been going on for about 6 months to a year and she is noted to have fibroids on CT. I discussed the findings with her and she is going to follow-up with her OBGYN Dr. Marques who is in the [place] (9) Chronic obstructive pulmonary disease: Code(s): J44.9 - Chronic obstructive pulmonary disease, unspecified Status: Acute Assessment and Plan: -----No acute issues; continue maintenance inhalers. Subjective Date/time seen: 05/31/20 14:48 Interval history: Pt is a 45-year-old female here for abdominal pain and syncope. Patient was seen today before her procedure and says her abdominal pain is a little better but still significant at times. She is still throwing up. She feels pretty consistently dizzy now. She has not had any more unresponsive episodes. She denies chest pain, shortness of breath, fevers, chills, or leg swelling. Exam Narrative: Exam Narrative: General: Well developed well nourished patient resting in bed in NAD HEENT: normocephalic Neck: supple Neuro: Alert and oriented x4. CN 2-12 intact. Pupils equal are reacti
--- NOTE | 2020-05-31 15:48 | PM.PNCARD ---
Progress Note: A&P Assessment and Plan (1) Syncope: Code(s): R55 - Syncope and collapse Status: Acute Assessment and Plan: She has first degree AV block with intermittent wenckebach heart block. Longest pause of 3.5 seconds Her low degree block is likely provoked by vasovagal reaction due to her abdominal pain however she likely has sick conduction system (likely due to prior STMI last year) suggested by prior holter monitor findings in February with HR 37. She was scheduled for 1 week event monitor next month during her last visit to the office For now she has no acute indication for pacemaker but will continue to monitor her on tele to see if she has any higher degree AV block Hold Metoprolol and Digoxin. so far with holding metoprolol and digoxin is only recurrence of type 1 second-degree AV block but no recurrent pauses. Will continue to monitor, so far no indication for need for pacemaker (2) Coronary artery disease: Code(s): I25.10 - Atherosclerotic heart disease of [place] coronary artery without angina pectoris Status: Acute Assessment and Plan: s/p LAD stent. Continue ASA and Plavix. Continue Statin (3) Cardiomyopathy: Code(s): I42.9 - Cardiomyopathy, unspecified Status: Acute Assessment and Plan: With EF 25% folowing her STMI however EF recovered on echo in January. Subjective Date/time seen: 05/31/20 15:48 She feels better now, she underwent EGD today, showed hiatal hernia but no active source of bleed. Noted to have few episodes of first-degree and occasional second-degree type 1 av block. No more dizziness or syncope Exam Narrative: Exam Narrative: General - well-appearing, in no acute distress. Neck - Supple without lymphadenopathy or thyromegaly. 2+ carotid pulses with normal carotid upstroke and duration. No carotid bruits. Cardiovascular - No heave. Regular in rate and rhythm, normal S1, S2, with a II/ systolic murmur, no rubs, and no gallops. Lung - Clear to auscultation bilaterally. Abdomen - Bowels sounds present and of normal activity. Abdomen soft, nontender, and nondistended. Extremities - No cyanosis, clubbing, or edema. Pulses: radial 2+ bilaterally, posterior tibial and dorsalis pedis 2+ bilaterally. Const: General: no acute distress Eyes: Sclera: sclerae normal Neck: Neck: no JVD Carotids: no bruits Resp: Effort & Inspection: normal respiratory effort Auscultation: clear to auscultation bilaterally Cardio: Rate: regular rate and not tachycardic Rhythm: regular rhythm Heart sounds: no gallops, no murmurs and no rubs Skin: General skin exam: normal color Neuro: Cranial nerves: Yes Normal hearing present Speech: normal speech Extrem: General: normal to inspection and no edema Psych: Affect: normal affect Objective Data Vital Signs Vital Signs: Vital Signs - 24 hr 05/30/20 16:00 05/30/20 16:30 05/30/20 18:00 Temperature 36.4 C Pulse Rate 49 L 100 82 Respiratory Rate 16 16 Blood Pressure 109/57 L Pulse Oximetry 100 05/30/20 19:39 05/30/20 20:00 05/30/20 22:00 Temperature 36.1 C L Pulse Rate 87 88 Respiratory Rate 20 Blood Pressure 122/59 L Pulse Oximetry 98 100 05/30/20 23:51 05/31/20 00:00 05/31/20 01:56 Temperature 36.6 C Pulse Rate 86 85 73 Respiratory Rate 16 Blood Pressure 101/66 Pulse Oximetry 100 05/31/20 04:00 05/31/20 07:12 05/31/20 08:00 Temperature 36.4 C L 36.7 C Pulse Rate 87 78 99 Respiratory Rate 22 H 16 Blood Pressure 100/45 L 115/55 L Pulse Oximetry 100 100 05/31/20 08:39 05/31/20 10:00 05/31/20 12:00 Temperature 36.6 C Pulse Rate 82 82 79 Respiratory Rate 16 Blood Pressure 108/54 L Pulse Oximetry 100 100 05/31/20 12:10 05/31/20 13:14 05/31/20 13:24 Temperature 36.7 C Pulse Rate 81 79 77 Respiratory Rate 18 24 H 19 Blood Pressure 119/63 95/52 L 100/58 L Pulse Oximetry 100 95 100 05/31/20 13:34 05/31/20 14:00 05/31/20 14
[2020-05-31] MEDS: ACETAMINOPHEN 325 MG TABLET 650 MG PO (20:14)
[2020-06-01] VITALS (10 sets, daily range): BP systolic 98–110; BP diastolic 45–58; PULSE 50–90; RESP 16–20; TEMP 36.3–36.7; O2SAT 97–100
[2020-06-01 04:47] LABS: Hematocrit 28.9 % (37.0-47.0); Hemoglobin 8.5 g/dL (12.0-15.0)
[2020-06-01 05:03] LABS: Anion Gap 7 mmol/L (8-16); Blood Urea Nitrogen 7 mg/dL (7-17); Calcium 8.4 mg/dL (8.4-10.2); Carbon Dioxide 24 mmol/L (22-30); Chloride 105 mmol/L (98-107); Estimated CRCL calculation 45 ml/min; Estimated Glomerular Filt Rate 53; Glucose 112 mg/dL (65-105); Potassium 3.5 mmol/L (3.4-5.0); Sodium 136 mmol/L (137-145)
--- NOTE | 2020-06-01 07:53 | WPDANESPN ---
Anes - Prog Note Post-Op Date/Time: 06/01/20 07:53 Cardiovascular status: normal Respiratory status: normal Airway patency: baseline Mental status: baseline Post-Op hydration status: normal Vital Signs: Last Vital Signs Temp 36.7 C 06/01/20 07:06 Pulse 67 06/01/20 07:06 Resp 20 06/01/20 07:06 BP 98/45 L 06/01/20 07:06 Pulse Ox 97 06/01/20 07:06 I/O: Intake & Output 05/31/20 05/31/20 06/01/20 15:59 23:59 07:59 Intake Total 426 1000 800 Output Total 450 550 Balance 426 550 250 Laboratory Tests 06/01/20 04:30 06/01/20 04:30 06/01/20 06/01/20 04:30 04:30 Hgb 8.5 L Hct 28.9 L Sodium 136 L Potassium 3.5 Chloride 105 Carbon Dioxide 24 Anion Gap 7 L BUN 7 Creatinine 1.30 H Estim Creat Clear Calc 45 Estimated GFR 53 L Glucose 112 H Calcium 8.4 Post-procedural complaints: none Patient Feedback: Patient satisfied with anesthetic care.
[2020-06-01] MEDS: ACETAMINOPHEN 325 MG TABLET 650 MG PO (07:59)
[2020-06-01] MEDS: ONDANSETRON INJ 4 MG/2 ML VIAL IV PUSH (07:59)
[2020-06-01] MEDS: ROSUVASTATIN 10 MG TABLET 40 MG PO (08:00)
[2020-06-01] MEDS: FERROUS SULFATE 324 MG TABLET PO (08:00)
[2020-06-01] MEDS: CYANOCOBALAMIN 1,000 MCG TABLET 1000 MCG PO (08:00)
[2020-06-01] MEDS: ASPIRIN 81 MG CHEWABLE TABLET PO (08:00)
[2020-06-01] MEDS: CLOPIDOGREL BISULFATE 75 MG TABLET PO (08:00)
[2020-06-01] MEDS: PANTOPRAZOLE 40 MG TABLET PO (08:00)
[2020-06-01] MEDS: MONTELUKAST SODIUM 10 MG TABLET PO (08:00)
[2020-06-01] MEDS: SODIUM CHLORIDE 0.9% IV 1,000 ML 75 ML IV CONT (12:01)
--- NOTE | 2020-06-01 13:59 | PM.PNCARD ---
Progress Note: A&P Assessment and Plan (1) Syncope: Code(s): R55 - Syncope and collapse Status: Acute Assessment and Plan: She has first degree AV block with intermittent wenckebach heart block. Doing better since off Digoxin and BB Mostly in sinus rhythm now. Her syncope was likely provoked by vasovagal reaction with abdominal pain however she likely has sick conduction system (likely due to prior STMI last year). No indication for pacemaner at this point She is scheduled for 1 week event monitor next month She is stable for discharge from cardiac standpoint with follow up in 1 week (2) Coronary artery disease: Code(s): I25.10 - Atherosclerotic heart disease of [place] coronary artery without angina pectoris Status: Acute Assessment and Plan: s/p LAD stent. Continue ASA and Plavix. Continue Statin (3) Cardiomyopathy: Code(s): I42.9 - Cardiomyopathy, unspecified Status: Acute Assessment and Plan: With EF 25% folowing her STMI however EF recovered on echo in January to 50-55% Will plan repeat limited echo in the office . Subjective Date/time seen: 06/01/20 13:59 She feels somewhat dizzy. She has been mostly in sinus rhythm with brief periods of Mobitz type I AV block (longest pause 1.9 sec). Review of Systems Review of Systems: All systems reviewed & are unremarkable except as noted in HPI and below Constitutional: Constitutional: Denies fatigue and Denies headache(s) Eyes: Eyes: Denies blurry vision ENT: Reports Normal hearing present and Denies headache(s) Cardiovascular: Cardiovascular: Denies chest pain, Denies diaphoresis, Denies pedal edema, Denies leg edema, Denies lightheadedness, Denies palpitations and Denies dyspnea Respiratory: Respiratory: Denies cough and Denies dyspnea Gastrointestinal: Gastrointestinal: Denies abdominal pain Musculoskeletal: Musculoskeletal: Denies back pain Neurologic: Reports Normal hearing present and Denies headache(s) Psychiatric: Psychiatric: Denies anxiety Endocrine: Endocrine: Denies fatigue and Denies palpitations Exam Narrative: Exam Narrative: General - well-appearing, in no acute distress. Neck - Supple without lymphadenopathy or thyromegaly. 2+ carotid pulses with normal carotid upstroke and duration. No carotid bruits. Cardiovascular - No heave. Regular in rate and rhythm, normal S1, S2, with a II/ systolic murmur, no rubs, and no gallops. Lung - Clear to auscultation bilaterally. Abdomen - Bowels sounds present and of normal activity. Abdomen soft, nontender, and nondistended. Extremities - No cyanosis, clubbing, or edema. Pulses: radial 2+ bilaterally, posterior tibial and dorsalis pedis 2+ bilaterally. Const: General: no acute distress Eyes: Sclera: sclerae normal Neck: Neck: no JVD Carotids: no bruits Resp: Effort & Inspection: normal respiratory effort Auscultation: clear to auscultation bilaterally Cardio: Rate: regular rate and not tachycardic Rhythm: regular rhythm Heart sounds: no gallops, no murmurs and no rubs Skin: General skin exam: normal color Neuro: Cranial nerves: Yes Normal hearing present Speech: normal speech Extrem: General: normal to inspection and no edema Psych: Affect: normal affect Objective Data Vital Signs Vital Signs: Vital Signs - 24 hr 05/31/20 14:00 05/31/20 14:32 05/31/20 16:00 Temperature Pulse Rate 75 80 85 Respiratory Rate Blood Pressure 108/51 L Pulse Oximetry 05/31/20 17:08 05/31/20 18:00 05/31/20 19:15 Temperature 36.6 C 36.7 C Pulse Rate 82 88 91 Respiratory Rate 16 16 Blood Pressure 120/62 101/51 L Pulse Oximetry 100 99 05/31/20 20:00 05/31/20 21:31 05/31/20 22:48 Temperature Pulse Rate 84 89 81 Respiratory Rate Blood Pressure Pulse Oximetry 98 05/31/20 23:15 05/31/20 23:30 06/01/20 02:00 Temperature 36.6 C Pulse Rate 88 78 80 Respiratory Rate 20 Blood Pressure 1
--- NOTE | 2020-06-01 14:40 | PM.DS ---
DS: Admitting Diagnosis Admitting Diagnosis Admitting Diagnosis: Syncope. DS: Discharge Diagnosis Discharge Diagnosis (1) Second degree type I atrioventricular block: Code(s): I44.1 - Atrioventricular block, second degree Status: Acute Assessment and Plan: -----Throughout her stay, tele revealed intermitten 2nd degree type 1 heart block. I spoke with Cardiology who recommends holding beta-cindy therapy as well as digoxin. I do not think this is causing her dizziness as I believe it is multi factorial. See below (2) Syncope: Code(s): R55 - Syncope and collapse Status: Acute Assessment and Plan: -----unclear etiology at this time but I suspect she had a vasovagal event from her abdominal pain. This is complicated with her worsening anemia due to menorrhalgia and now possibly a heart block. CT of the abdomen pelvis did not show any etiology for the abdominal pain and the patient states it is getting better but still there and is 8/10. HIDA normal. She has been on Protonix which to has not seemed to help. (3) Kidney failure: Qualifiers: Renal failure chronicity: unspecified chronicity Qualified Code(s): N19 - Unspecified kidney failure Code(s): N19 - Unspecified kidney failure Status: Acute Assessment and Plan: -----f/u w/ pcp. continue oral hydration since she received contrast. (4) Dehydration: Code(s): E86.0 - Dehydration Status: Acute Assessment and Plan: -----Due to poor oral intake from nausea in addition to vomiting last couple of days. (5) Iron deficiency anemia: Code(s): D50.9 - Iron deficiency anemia, unspecified Status: Acute Assessment and Plan: -----Most likely due to menometrorrhagia however given GI symptoms will wait for [facility]. She was given 1 dose of IV iron on admission and her hemoglobin decreased with additional dizziness so she was given 1 unit of blood. Hemoglobin stable today (6) Coronary artery disease: Code(s): I25.10 - Atherosclerotic heart disease of [place] coronary artery without angina pectoris Status: Acute Assessment and Plan: -----Status post drug-eluting stent to the LAD in July 2019. Plavix is being held and previous provider discussed this with Dr. Dunaway. Beta-cindy and digoxin has been held (7) Hypertension: Code(s): I10 - Essential (primary) hypertension Status: Acute Assessment and Plan: -----last blood pressure 118/75. Monitor (8) Menometrorrhagia: Code(s): N92.1 - Excessive and frequent menstruation with irregular cycle Status: Acute Assessment and Plan: -----this is been going on for about 6 months to a year and she is noted to have fibroids on CT. I discussed the findings with her and she is going to follow-up with her OBGYN Dr. Marques who is in the [place] (9) Chronic obstructive pulmonary disease: Code(s): J44.9 - Chronic obstructive pulmonary disease, unspecified Status: Acute Assessment and Plan: -----No acute issues; continue maintenance inhalers. DS: Summary Hospital Course Reason for hospitalization: Syncope, dizziness Hospital Course: Who was brought to the emergency room for unresponsiveness after suddenly feeling ill with significant abdominal pain at a family function. No one else was sick. Narcan was given without any response. Vitals in the ER were stable. Initial hemoglobin 8.2, hematocrit 28.5, white blood cell count 13.2, platelets 655. Cr 1.7. CTA of the chest abdomen pelvis showed no pulmonary emboli or other acute disease. She did have a uterine fibroid. Admitted to the hospitalist service. Initial EKG showed appeared that she went into second-degree heart block type 1. Cardiology was consulted and stopped her beta-cindy and digoxin. Pain and HIDA scan was performed which was negative. It was thought that h
== END 2020-06-01 15:46 | disposition home or self-care (01) | DRG 204 ==
LOC: ANHED 19:15 → ANH3MEDSUR 19:40 → ANHIMU 05-29 16:01
PROVIDERS: Internal Medicine Gastroenterology; Physician Assistant; Admitting Provider Internal Medicine; Emergency Provider Emergency Medicine; Visit Provider Internal Medicine
PROC: 0DJ08ZZ Inspection of Upper Intestinal Tract, Via Natural or Artificial Opening Endoscopic (ICD-10-PCS; CPT 43235; principal; 2020-05-31 12:30)
DX: R55 Syncope and collapse (principal); D25.9 Leiomyoma of uterus, unspecified; N92.1 Excessive and frequent menstruation with irregular cycle; D50.9 Iron deficiency anemia, unspecified; I44.1 Atrioventricular block, second degree; K63.5 Polyp of colon; I25.10 Atherosclerotic heart disease of native coronary artery without angina pectoris; K44.9 Diaphragmatic hernia without obstruction or gangrene; E86.0 Dehydration; I25.5 Ischemic cardiomyopathy; E78.5 Hyperlipidemia, unspecified; I10 Essential (primary) hypertension; J44.9 Chronic obstructive pulmonary disease, unspecified; N17.9 Acute kidney failure, unspecified; F45.8 Other somatoform disorders; F17.210 Nicotine dependence, cigarettes, uncomplicated; Z95.5 Presence of coronary angioplasty implant and graft; I25.2 Old myocardial infarction
CPT/HCPCS: 36415; 36430; 36600; 70496; 70498; 70551; 71275; 74177; 78227; 80048; 80053; 80076; 80162; 80307; 81001; 81025; 82271; 82607; 82728; 82746; 82805; 82948; 83540; 83550; 83615; 83690; 83735; 83986; 84443; 84466; 84484; 85014; 85018; 85025; 85027; 85046; 86644; 86850; 86900; 86901; 86920; 87086; 88305; 88342; 93005; 93306; 94640; 94762; 96361; 96365; 96374; 96375; 96376; 99285; A9270; A9537; C9113; G0378; G0379; J0131; J1756; J2270; J2405; J2704; J2805; J7030; J7120; P9016; Q9967

== ENCOUNTER 2020-06-02 10:59 | Emergency (ER) | payer OTHER, SELFPAY ==
--- NOTE | ~2020-06-02 | US_ITS ---
CORRECTED REPORT DESCRIPTION CORRECTED. 06/02/20 jakub EXAMINATION: US pelvic complete w TV DATE: 06/02/2020 14:02 INDICATION: Heavy vaginal bleeding. TECHNIQUE: Multiple transabdominal and transvaginal sonographic images of the pelvis were obtained. COMPARISON: CT abdomen and pelvis 05/28/2020 FINDINGS: TRANSABDOMINAL ULTRASOUND: The uterus measures 11.1 x 5.7 x 5.0 cm. There is no free fluid in the pelvis. TRANSVAGINAL ULTRASOUND: The endometrial complex is obscured and measures up to 13 mm. There is a 3.8 cm hypoechoic intramural fibroid. There is a 2.9 cm hypoechoic subserosal fibroid. There are nabothian cysts in the cervix. The ovaries are not visualized. IMPRESSION: 1. Uterine fibroids. Reviewed, dictated and finalized at location B. MTDD IMPRESSION: 1. Uterine fibroids.
[2020-06-02 11:13] VITALS: BP 125/79; PULSE 84; RESP 16; TEMP 36.5; O2SAT 100
[2020-06-02 11:29] LABS: Basophils Absolute Auto 0.1 K/mm3 (0.0-0.1); Basophils Percent Auto 0.6 % (0.2-1.2); Eosinophils Percent Auto 0.5 % (0-4.4); Hematocrit 31.7 % (37.0-47.0); Hemoglobin 9.3 g/dL (12.0-15.0); Immature Granulocyte Absolute 0.04 K/mm3 (0.00-0.031); Immature Granulocyte Percent A 0.5 % (0-0.5); Lymphocytes Absolute Auto 1.94 K/mm3 (0.9-3.2); Lymphocytes Percent Auto 23.3 % (18.3-44.2); Mean Corpuscular HGB Conc 29.3 g/dl (32-36); Mean Corpuscular Hemoglobin 21.2 pg (26-34); Mean Corpuscular Volume 72.4 fl (80-100); Mean Platelet Volume 9.6 fl (7.4-10.4); Monocytes Absolute Auto 0.6 K/mm3 (0.1-0.6); Monocytes Percent Auto 7.6 % (2.6-8.5); Neutrophils Absolute Auto 5.6 K/mm3 (1.3-6.7); Neutrophils Percent Auto 67.5 % (45.5-73.1); Platelet Count Result 567 k/mm3 (150-375); Red Blood Count 4.38 M/mm3 (4.2-5.4); Red Cell Distribution Width 23.9 % (11.5-14.5); White Blood Count 8.3 K/mm3 (4.5-10.0)
[2020-06-02 11:50] LABS: Hypochromasia 2+ (NORMAL); Ovalocytes 2+ (NORMAL); Platelet Estimate Increased (Adequate)
--- NOTE | 2020-06-02 12:15 | ED.FEMALEGU ---
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 Patient reports she has been having heavy bleeding for 1 week. She was discharged from the hospital after being evaluated for syncope, abdominal pain and anemia. She was given a blood transfusion and she was told she had uterine fibroids. This morning she developed heavy vaginal bleeding. 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 She reports she has gone through 3 pads in past 1 hour. Related Data Home Medications Medication Instructions Recorded Confirmed albuterol sulfate 2 puff INHALATION PRN 05/28/20 05/28/20 aspirin 81 mg PO DAILY 05/28/20 05/28/20 budesonide-formoterol [Symbicort] 160 puff INHALATION BID 05/28/20 05/28/20 ferrous sulfate 325 mg PO DAILY 05/28/20 05/28/20 lisinopril 5 mg PO DAILY 05/28/20 05/28/20 montelukast 10 mg PO DAILY 05/28/20 05/28/20 rosuvastatin 40 mg PO DAILY 05/28/20 05/28/20 Allergies Allergy/AdvReac Type Severity Reaction Status Date / Time No Known Allergies Allergy Verified 05/31/20 12:08 Review of Systems Review of Systems: No All systems reviewed & are unremarkable except as noted in HPI and below Constitutional: Constitutional: Denies chills and Reports fatigue Cardiovascular: Cardiovascular: Denies chest pain Respiratory: Respiratory: Denies cough and Denies dyspnea Gastrointestinal: Gastrointestinal: Reports abdominal pain, Denies diarrhea, Denies nausea and Denies vomiting Genitourinary: Genitourinary: Reports abnormal vaginal bleeding [facility] [place] Past Medical History Medical History Abdominal pain Chronic obstructive pulmonary disease Coronary artery disease Status post stent to the LAD in July 2019, on dual anti-platelet therapy as of 05/28/2020. She is a patient of Dr. Jason Dunaway. Hyperlipidemia Hypertension Iron deficiency anemia Myocardial infarction (~07/2019) Nausea and vomiting in adult Surgical History Surgical History History of 3 sections Stented coronary artery (~07/2019) Drug-eluting stent to the LAD. Family History Family History (Updated 05/28/20 @ 22:08 by Stephanie Knox PA-C) Mother Congestive heart failure Liver cancer Sibling Congenital heart disease Social History Social History (Updated 05/28/20 @ 22:09 by Stephanie Knox PA-C) Social History: Surrogate decision maker: Yahaira Lozano, sister. Code status: Full code. Smoking packs per day: 2 Smoking cigarettes per day: 40.0 Years smoked: 20 Smoking pack-years: 40.00 Alcohol intake: never Substance use: never Substance use type: does not use Additional living arrangements comments: Patient resides in [place] with her niece. Gender identity (if verbalized by the patient): Female Spiritual care concerns: No Exam Const: General: no acute distress and alert Orientation/consciousness: patient oriented x3 Eyes: EOM: EOMs intact bilaterally Resp: Effort & Inspection: normal respiratory effort and no retractions Auscultation: clear to auscultation bilaterally Cardio: Rate: regular rate Rhythm: regular rhythm Heart sounds: no murmurs GI: GI Palp: Yes Soft to palpation, Yes Tenderness to palpation present (GI) (suprapubic), No Guarding due to palpation present (GI) and No Rigid due to palpation : Speculum Exam - Vagina: vaginal bleeding Speculum Exam - Cervix: Other cervical findings present (clots in cervix but no heavy bleeding) Bimanual exam- vagina & uterus: Uterine tenderness Course Consultations Consultation #1: I Discussed case with DR. Boggs
[2020-06-02 14:45] VITALS: BP 108/60; BP 118/75; BP 123/69; PULSE 79; PULSE 82; PULSE 84
[2020-06-02 15:22] VITALS: BP 118/75; PULSE 82; RESP 15; O2SAT 100
--- NOTE | 2020-06-02 15:42 | PC.NURSE ---
Per MD Otero , no IV is needed for this pt.
== END 2020-06-02 16:57 | disposition home or self-care (01) ==
PROVIDERS: Emergency Provider General Practice; PCP Family Medicine
DX: D50.9 Iron deficiency anemia, unspecified (principal); N92.1 Excessive and frequent menstruation with irregular cycle; D25.9 Leiomyoma of uterus, unspecified; F17.210 Nicotine dependence, cigarettes, uncomplicated; J44.9 Chronic obstructive pulmonary disease, unspecified; I25.10 Atherosclerotic heart disease of native coronary artery without angina pectoris; E78.5 Hyperlipidemia, unspecified; I10 Essential (primary) hypertension; I25.2 Old myocardial infarction
CPT/HCPCS: 36415; 76830; 76856; 81479; 85025; 86850; 86860; 86870; 86880; 86900; 86901; 86902; 86971; 86972; 86978; 87070; 87491; 87591; 87808; 99284